=== PATIENT | female | born 1965 | race Caucasian/White ===

== ENCOUNTER 2023-07-03 17:23 | Emergency (ER) | payer OTHER, SELFPAY ==
[2023-07-03 17:28] VITALS: BP 149/92; PULSE 80; RESP 16; TEMP 37; O2SAT 98; BMI 22.0
--- NOTE | 2023-07-03 18:04 | ED_ITS ---
HPI - General Adult General Time Seen by Provider: 18:04 Date Seen: 07/03/23 Chief complaint: Insect Bite Stated complaint: Bee stings, swelling Time Seen by Provider: 07/03/23 17:48 Source: patient Mode of arrival: ambulatory Limitations: no limitations History of Present Illness HPI narrative: Patient is a 57-year-old female presenting to emergency department for a bee sting. Patient states she has an allergy to bees but has never had anaphylaxis from them. States she was stung the hand at 15:00 and the left buttocks at 16:00. She has noticed swelling that has been getting worse. States this is the same thing happened last time she was sent home on steroids and did well. She did take a Benadryl. Denies chest pain, shortness of breath, abdominal pain, diarrhea, headache, lightheadedness, dizziness, fevers, weakness. She states she feels fine right now are than the stings hurt. Related Data Home Medications Medication Instructions Recorded Confirmed escitalopram oxalate 20 mg tablet 20 mg PO DAILY 01/04/23 07/03/23 valacyclovir 500 mg tablet 500 mg PO BID 01/04/23 07/03/23 Allergies Allergy/AdvReac Type Severity Reaction Status Date / Time bee pollen Allergy Severe Anaphylaxis Verified 07/03/23 17:28 Review of Systems Status of ROS: Reports: 10 or more systems reviewed and unremarkable except as noted in History and below [facility] Social History Smoking Status: Never smoker Exam Narrative: Exam Narrative: Const: Well-nourished, Well-developed, in no distress Eyes: PERRL, no conjunctival injection, and symmetrical lids ENMT: Atraumatic external nose and ears. Moist mucous membranes. Neck: Symmetric, trachea midline, No thyromegaly. CVS: RRR, No murmurs or gallops. Peripheral pulses 2+ and equal in all extremities RESP: Unlabored respiratory effort. Clear to auscultation bilaterally. GI: Nontender/Nondistended, No rebound or guarding. MSK:Extremities w/o deformity, Normal Active ROM Skin: Warm, Dry. Swelling noted to right hand at the 1st and 2nd PIP joints Neuro: Normal Muscle tone, No focal neurological deficits. Psych: Awake, Alert, & Oriented x3. Appropriate mood and affect. Const: Vital Signs, click to edit/add: Vital Signs - 24 hr 07/03/23 17:28 Temperature 98.6 F Pulse Rate [Pulse Oximeter] 80 Respiratory Rate 16 Blood Pressure [Ri ght Upper Arm] 149/92 H Pulse Oximetry 98 Oxygen Delivery Me thod Room Air Course Vital Signs Vital signs: Initial Vital Signs Temperature 98.6 F 07/03/23 17:28 Temperature Source Temporal Artery Scan 07/03/23 17:28 Pulse Rate 80 07/03/23 17:28 Respiratory Rate 16 07/03/23 17:28 Blood Pressure 149/92 H 07/03/23 17:28 Blood Pressure Mean 111 H 07/03/23 17:28 Blood Pressure Position Sitting 07/03/23 17:28 Pulse Oximetry 98 07/03/23 17:28 Oxygen Delivery Method Room Air 07/03/23 17:28 Vital Signs Temperature 98.6 F 07/03/23 17:28 Pulse Rate 80 07/03/23 17:28 Respiratory Rate 16 07/03/23 17:28 Blood Pressure 149/92 H 07/03/23 17:28 Pulse Oximetry 98 07/03/23 17:28 Oxygen Delivery Method Room Air 07/03/23 17:28 Temperature 98.6 F 07/03/23 17:28 Pulse Rate 80 07/03/23 17:28 Respiratory Rate 16 07/03/23 17:28 Blood Pressure 149/92 H 07/03/23 17:28 Pulse Oximetry 98 07/03/23 17:28 Oxygen Delivery Method Room Air 07/03/23 17:28 Medical Decision Making MDM Narrative Medical decision making narrative: Patient is a 57-year-old female presented emergency department for to bee stings. The 1st 1 happened 3 hours ago and the 2nd one happened 2 hours ago. She states she has this happen to her before and most knee of steroids and did well. Is not having any signs of anaphylaxis at this time. Is now been several hours since this occurred I believe she is safe to be discharged home. She was sent home on steroids. She is agreeable to this plan. Discharge Plan Discharge Clinical Impression: Allergy to bee sting Patient Disposition: Home, Self-Care Condition: Stable Instructions: Insect Bite or Sting (ED) Additional Instructions: Follow-up with the primary care provider if symptoms do not improve he can also return to the emergency department if your concern. Take the prednisone as directed. Continue take Benadryl. Prescriptions: No Action escitalopram oxalate 20 mg tablet 20 mg PO DAILY valacyclovir 500 mg tablet 500 mg PO BID Follow Up/Referrals: Diego Rinaldi MD [Primary Care Provider] - Stand Alone Forms: [employer] Info Instructions
[2023-07-03] MEDS: predniSONE 20 MG TABLET 40 MG PO (18:18)
--- NOTE | 2023-07-04 12:12 | ED.NURSE ---
Patient calls re: was prescribed prednisone via written prescription yesterday, was not signed by provider so pharmacy will not fill prescription. Per patient, prescription for prednisone 20mg daily x5 days. Discussed with chuy Perez to phone into patient's preferred pharmacy. Called into [facility] on [address] in [place] per patient request. No further questions/concerns.
== END 2023-07-03 18:23 | disposition home or self-care (01) ==
PROVIDERS: Emergency Provider Student in an Organized Health Care Education/Training Program; PCP Family Medicine
DX: T63.441A Toxic effect of venom of bees, accidental (unintentional), initial encounter (principal)
CPT/HCPCS: 99282; 99283; J7512

== ENCOUNTER 2025-06-04 14:12 | Emergency (ER) | payer BC, OTHER, SELFPAY ==
--- OUTSIDE RECORDS SUMMARY | 2025-06-04 14:14 | XMS_ITS | Continuity of Care Document ---
Author Name [facility] Organization [facility] Care Team Providers Care Rig Supervisor Name Role Phone [facility] Unavailable Unavailable Social History Combined list of available smoking, tobacco, and other social history from Department of Defense and Veterans Affairs facilities. Social History Type Response Date Comment Sourc e This section is an empty social history section. DoD
--- OUTSIDE RECORDS SUMMARY | 2025-06-04 14:14 | XMS_ITS | Continuity of Care Document ---
Author Name [facility] Organization [facility] Care Team Providers Care Foundation Relations Manager Name Role Phone [facility] Unavailable Unavailable Social History Combined list of available smoking, tobacco, and other social history from Department of Defense and Veterans Affairs facilities. Social History Type Response Date Comment Sourc e This section is an empty social history section. DoD
--- OUTSIDE RECORDS SUMMARY | 2025-06-04 14:15 | XMS_ITS | Clinical Summary ---
Author Organization [facility] Address [address] [place] [id number] Care Team Providers Care Glove Stitcher Name Role Phone Diego Rinaldi MD Primary Care Provider [phone] Allergies Active Allergy Reactions Criticality Noted Date Comments Bee Venom Protein (Honey Bee) Edema 2020 Medications cholecalciferol (VITAMIN D-3) 2,000 unit capsule Take 1 capsule by mouth once daily. 0 11/05/19 21 Active EPINEPHrine (EpiPen) 0.3 mg/0.3 mL auto-injectorIndic ations:Bee sting allergy Inject 0.3 mg intramuscular one time if needed for Allergic Reaction. 2 Each 1 11/12/19 24 Active meclizine (ANTIVERT) 25 mg tabletIndications: Concussion with loss of consciousness of 30 minutes or less, initial encounter Take 1 Tablet (25 mg) by mouth 3 times daily if needed for Vertigo. 30 Tablet 2 11/12/19 24 Active cetirizine (ZYRTEC) 10 mg tabletIndications: Bee sting allergy Take 1 Tablet (10 mg) by mouth once daily if needed for Allergy Symptoms (Redness, swelling). 90 Tablet 3 11/12/19 24 Active multivit-min/iron/ folic acid/K (MULTI-DAY PLUS MINERALS ORAL) Take by mouth once daily. Active valACYclovir (VALTREX) 500 mg tabletIndications: Recurrent cold sores TAKE 2 TABS BY MOUTH DAILY 180 Tablet 2 01/02/20 25 Active lisinopriL 10 mg tabletIndications: HTN (hypertension) Take 1 Tablet (10 mg) by mouth once daily. 30 Tablet 11 02/13/20 25 Active lovastatin 10 mg tabletIndications: Hyperlipidemia, unspecified hyperlipidemia type Take 1 Tablet (10 mg) by mouth at bedtime. 30 Tablet 11 02/15/20 25 Active methylPREDNISolone (Medrol (Red)) 4 mg tabletIndications: Chronic left shoulder pain,Adhesive capsulitis of left shoulder Take by mouth as instructed per packaging. 21 Tablet 03/13/20 25 Active escitalopram oxalate 20 mg tabletIndications: Anxiety and depression TAKE 1 TABLET BY MOUTH EVERY DAY IN THE MORNING 90 Tablet 1 03/25/20 25 Active Active Problems Problem Noted Date Diagnosed Date Dorsey cyst, left 02/12/2025 HTN (hypertension) 02/12/2025 Chronic left shoulder pain 02/12/2025 Recurrent cold sores 01/01/2025 Hypercholesterolemia 11/12/2023 Multiple thyroid nodules 08/27/2023 TREVOR (generalized anxiety disorder) 11/03/2020 ALEX (obstructive sleep apnea) 11/03/2020 Anxiety disorder 07/10/2014 Vitamin D deficiency 10/09/2012 Hiatal hernia 04/30/2011 Cyst, breast 05/10/2009 Overview (05/10/2009): 3 cysts in right breast , largest 5.4x4.1x1.3 on ultrasound in 2007 Menopause present 05/10/2009 Actinic keratosis Dysplastic nevus Resolved Problems Problem Noted Date Diagnosed Date Resolved Date Routine adult health maintenance 12/14/2016 08/30/2019 Overview (12/14/2016): Colonoscopy 11/2016 diverticulosis repeat in 10 years Acute dyspnea 08/10/2016 08/30/2019 Influenza A 11/06/2013 08/30/2019 S/P hysterectomy with oophorectomy 10/04/2012 08/30/2019 Anxiety state, unspecified 10/05/2008 1 HTN (hypertension) 10/05/2008 6 Overview (01/07/2010): Updated by system to replace inactive record Endometriosis, site unspecified 12/08/2006 08/30/2019 Encounters Date Type Department Care Team Description 04/24/2025 2:30 PM CDT Office Visit [facility] [id number] [facility] [address] [place] [address] Sergio Fu MD Shoulder Pain/problem (Adhesive capsulitis of left shoulder) 04/24/2025 Travel 04/02/2025 2:40 PM CDT - 04/02/2025 11:59 PM CDT Hospital Encounter [facility] Physical [address] [address] [facility] [address] [place] [address] Parish An MD Ebeling, Ashley, PT 04/02/2025 Travel 03/24/2025 Refill [facility] [address] [place] [address] Diego Rinaldi MD Refill Request (Escitalopram Oxalate) 03/21/2025 3:00 PM CDT Procedure Only [facility] [address] [facility] [address] [place] [address] Jeffrey Booth MD Injection (Medication) (Glenohumeral high ... 03/21/2025 Travel 03/14/2025 Telephone [facility] [address] [facility] [address] [place] [address] Jeffrey Booth MD Appointment 03/13/2025 3:00 PM CDT Office Visit [facility] [address] [address] Sergio Fu MD Shoulder Pain/problem (left) 03/13/2025 Travel 03/07/2025 2:07 PM CDT - 03/07/2025 11:59 PM CDT Hospital Encounter [facility] [address] [address] [facility] [address] [place] [address] Parish An MD Ebeling, Ashley, PT 03/07/2025 Travel from Last 3 Months Immunizations Immunization Administration Dates Next Due AMB Influenza, IIV3 (Age >=3 years)(Flu Clinic Only) 08/18/2013,07/13/2012,08/21/2011,08/19 INFLUENZA, IIV3 PF (AGE >= 6 MO) 08/03/2024 Influenza Virus, Unspecified 07/25/2023 Influenza, IIV3 (Age >=3 years) 07/17/2009,08/16,09/12/2007 Influenza, IIV4 08/06/2023,,07/14/2021,07/21,08/08/2019,08/08/2018,07/13/2018 ,07/23/2016,07/16/2015,08/27/2014 Influenza,CCIIV4 PRESERV FREE 07/21/2020, 017 Pneumococcal Conj 20-valent (Prevnar 20) 02/12/2025 RSV, Recombinant ADJ Reconst ituted (Arexvy 120MCG/0.5mL) 02/12/2025 Td, Preservative Free (age >= 7 Years) 7 Tdap 11/12/2023,10/04/2012 Zoster (Shingrix-RZV, recombinant) 09/09/2018, Family History Medical History Relation Name Comments Hypertension Mother Stroke Mother 62 Diabetes Paternal Grandfather Diabetes Paternal Grandmother Cancer-breast No Family History Cancer-ovarian No Family History Relation Name Status Comments Father Alive Mother Alive Paternal Grandfather Paternal Grandmother Sister Alive Social History Tobacco Use Types Packs/Day Years Used Date Smoking Tobacco: Never Passive Smoke Exposure: Never Smokeless Tobacco: Never Tobacco Cessation:Counseling Given: Not Answered Alcohol Use Standard Drinks/Week Comments Yes 0 (1 standard drink = 0.6 oz pur e alcohol) Social PHQ-2 Answer Date Recorded PHQ-2 TOTAL SCORE 0 02/12/2025 Social Connections Answer Date Recorded Do you often feel lonely or isolated from those around you? 0 05/31/2024 Financial Resource Strain Answer Date R ecorded Difficulty of Paying Living Expenses 3 05/31/2024 Difficulty of Paying Living Expenses Not on file 05/31/2024 Food Insecurity Answer Date Recorded Do you worry your food will run out before you are able to buy more? 1 05/31/2024 Transportation Needs Answer Date Record ed Does lack of transportation keep you from medica l appointments? 1 05/31/2024 Does lack of transportation keep you from work, meetings or getting things that you need? 1 05/31/2024 Housing Stability Answer Date Recorded What is your housing situation today? 1 05/31/2024 Utilities Answer Date Recorded Do you have trouble paying f or utilities (for example, heat, electricity, water, phone)? 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 Not on file Not on file Obstetrics History Last Filed Vital Signs Vital Sign Reading Time Taken Comments Blood Pressure 130/80 02/12/2025 8:31 AM CDT Pulse 72 02/12/2025 8:31 AM CDT Temperature 36.9 C (98.5 F) 12/26/2024 8:18 AM NUTRITIONALIST Respiratory Rate 15 12/26/2024 8:18 AM NUTRITIONALIST Oxygen Saturation 97% 12/26/2024 8:18 AM NUTRITIONALIST Inhaled Oxygen Concentration - - Weight 66.3 kg (146 lb 3.2 oz) 02/12/2025 8:31 A M CDT Height 172.2 cm (5' 7.8) 02/12/2025 8:31 AM CDT Body Mass Index 22.36 02/12/2025 8:31 AM CDT Plan of Treatment Health Maintenance Due Date Last Done Comments COVID-19 vaccine series ( season) 2024 10/06/2021, 03/20/2021, 02/20/2021 Influenza Vaccine (#1) 2025 , 08/06/2023, 07/25/2023, Additional history exists Mammogram for age 45-75 07/10/2025 07/10/20 24, 07/16/2023, 07/10/2022, Additional history exists BMI (ht and wt on same day) for age 18+ 02/12/2026 02/12/2025, 09/26/2024, 05/31/2024, Additional history exists Depression screening for age 12+ 02/13/2026 02/13/2025, 02/12/2025, 12/23/2024, Additional history exists Colonoscopy through age 75 12/14/202612/14, 12/14/2016, 12/14/2016 (Completed outside of [facility]), Additional history exists Lipids for age 45-75 02/12/2030 02/12/2025, 11/05/2020, 05/19/2018, Additional history exists Tetanus booster 11/12/2033 11/12/2023, 09/24, 12/08/2006 Zoster (shingles) series for age 50+ Completed 09/09/2018, 05/19/2018 Hepatitis C screening for age 18-79 Completed 11/05/2020 HIV for age 15-65 Completed 02/12/2025 Pneumococcal series for age 50+ Completed 02/12/2025 RSV vaccine for adults or Completed 02/12/2025 Hepatitis B series for 19+ Aged Out N o longer eligible based on patient's age to complete this topic Goals Goal Patient Goal Type Associated Problems Recent Progress Patient-Stated? Author BLOOD PRESSURE - MAINTAINS BP less than 140/90 Blood Pressure No Irasema Gordon MD Procedures Procedure Name Priority Date/Time Associated Diagnosis Comments ANTI HIV 1/2 Routine 02/12/2025 9:27 AM CDT Screening for HIV (human immunodeficiency virus) LIPID PANEL W REFLEX MEASURED LDL Routine 02/12/2025 9:27 AM CDT Lipid screening XR MAMMO MARELY BILAT SCREEN Routine 07/10/2024 4:48 PM CDT Visit for screening mammogram ANTI HCV Routine 11/05/2020 8:45 AM NUTRITIONALIST Need for hepatitis C screening test SCAN-COLONOSCOPY 12/14/2016 12:0 0 AM NUTRITIONALIST from Last 3 Months or Most Recently Relevant to Health Maintenance Results * (ABNORMAL) LIPID PANEL W REFLEX MEASURED LDL (02/12/2025 9:27 AM CDT) CHOLESTEROL, TOTAL 262(H) <200 mg/dL [facility] HDL CHOLESTEROL 85 > OR = 50 mg/dL [facility] TRIGLYCERIDES 117 <150 mg/dL [facility] LDL-CHOLESTEROL 154(H) mg/dL (calc) [facility] Comment: Reference range: <100 Desirable range <100 mg/dL for primary prevention; <70 mg/dL for patients with CHD or diabetic patients with > or = 2 CHD risk factors. LDL-C is now calculated using the Han calculation, which is a validated novel method providing better accuracy than the Friedewald equation in the estimation of LDL-C. Colin GROVER et al. MIKE. 2013;310(19): 8330-5094 (http://education.[employer]Medix/faq/PAO850) CHOL/HDLC RATIO 3.1 <5.0 (calc) [facility] NON HDL CHOLESTEROL 177(H) <130 mg/dL (calc) [facility] Comment: For patients with diabetes plus 1 major ASCVD risk factor, treating to a non-HDL-C goal of <100 mg/dL (LDL-C of <70 mg/dL) is considered a therapeutic option. Blood BLOOD SPECIMEN / Unknown 02/12/2025 9:27 AM CDT 02/12/2025 9:27 AM CDT Diego Rinaldi MD CHEMISTRY Final Resul t [employer] [facility] [address] [place] [address], [facility] [address] [place] [address] * ANTI HIV 1/2 (02/12/2025 9:27 AM CDT) HIV AG/AB, 4TH GEN NON-REACT THERON NON-REACT THERON [email or web address] [place] Comment: HIV-1 antigen and HIV-1/HIV-2 antibodies were not detected. There is no laboratory evidence of HIV infection. PLEASE NOTE: This information has been disclosed to you from records whose confidentiality may be protected by state law. If your state requires such protection, then the state law prohibits you from making any further disclosure of the information without the specific written consent of the person to whom it pertains, or as otherwise permitted by law. A general authorization for the release of medical or other information is NOT sufficient for this purpose. For additional information please refer to http://education.[employer]/faq/IHK083 (This link is being provided for informational/ educational purposes only.) The performance of this assay has not been clinically validated in patients less than 2 years old. Blood BLOOD SPECIMEN / Unknown 02/12/2025 9:27 AM CDT 02/12/2025 9:27 AM CDT us Diego Rinaldi MD SEND OUTS Final Resul t [employer] [facility] [address] [place] [address], [employer] [facility] [address] [place] [address] * XR MAMMO MARELY BILAT SCREEN (07/10/2024 4:48 PM CDT) Anatomical Region Laterality Modality BREASTS, Breast Left, Breast Right Bilateral Mammography Impressions 07/11/2024 2:05 PM CDT There is no radiographic evidence for malignancy. Recommend annual mammograms. MAMMOGRAM ASSESSMENT: ACR 1 Negative PATIENTS: You will also receive a letter with your examination results in an easy to read format. If you have questions about your results, please contact your referring provider. Narrative 07/11/2024 2:05 PM CDT For Patients: As a result of the Century Cures Act, medical imaging exams and procedure reports are released immediately into your electronic medical record. You may view this report before your referring provider. If you have questions, please contact your health care provider. XR MAMMO MARELY BILAT SCREEN [[id number]] CLINICAL HISTORY: This is an asymptomatic 58 y.o. patient. INDICATION FOR EXAM: Mammogram Screening. TECHNIQUE: CC & MLO views were obtained. This study was evaluated with the assistance of Computer-Aided Detection. Breast Tomosynthesis was used in interpretation. COMPARISON FILM: Yes 07/16/23 [facility] 07/10/22 [facility] FINDINGS: The breasts are extremely dense, which lowers the sensitivity of mammography. There are no dominant masses, suspicious micro calcifications or areas of architectural distortion. us Diego Rinaldi MD MAMMO Final Resul t * ANTI HCV (11/05/2020 8:45 AM NUTRITIONALIST) HEPATITIS C ANTIBODY Non-React theron Non-React theron 11/05/2020 4:43 PM NUTRITIONALIST [facility] Comment:Antibodies to HCV no t detected; does not exclude the possibility of exposure to HCV. Blood BLOOD SPECIMEN / Unknown Venipuncture / Unknown 11/05/2020 8:45 AM NUTRITIONALIST 11/05/2020 8:45 AM NUTRITIONALIST us Irasema Gordon MD SEND OUTS Final Resul t [facility] 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
--- OUTSIDE RECORDS SUMMARY | 2025-06-04 14:15 | XMS_ITS | Clinical Summary ---
Author Organization [facility] Address [address] [address] Care Team Providers Care Nurse General Duty Name Role Phone Janki Cronin MD Primary Care Provider Unavail able Source Comments You are receiving this document as you are listed as the primary care provider,follow-up provider, or the patient has been referred to you for consultation.This is in compliance with the Medicare and[place] [employer] EHR Incentive Program,which states Providers who transition their patient to another setting of careor provider of care or refers their patient to another provider of care shouldprovide summary care record for each transition of care or referral. [email or web address] Allergies No known active allergies Medications cholecalciferol (VITAMIN D3) 1000 UNITS tablet Take 1 Tablet (1,000 Units) by mouth daily. 07/17/20 15 Active ALBUTEROL SULFATE HFA INIndications:TAYLOR CRISOSTOMO V WedApr 13, 2016 8:19 AM Received from: External Pharmacy INHALE 1-2 PUFFS BY MOUTH EVERY 4 HOURS IF NEEDED. 1 12/26/19 16 Active escitalopram oxalate (LEXAPRO) 10 MG tabletIndications: TAYLOR CRISOSTOMO V WedApr 13, 2016 8:19 AM Received from: External Pharmacy Take 1 Tablet (10 mg) by mouth every morning. Indications: TAYLOR CRISOSTOMO V WedApr 13, 2016 8:19 AM Received from: External Pharmacy 0 02/07/20 16 Active fluticasone (FLONASE) 50 MCG/ACT nasal solution INHALE 1 SPRAY INTO BOTH NOSTRILS ONCE DAILY. 12/26/19 17 Active valACYclovir (VALTREX) 500 MG tablet Take 500 mg by mouth. 05/24/20 16 Active ondansetron (ZOFRAN-ODT) 4 MG disintegrating tablet Take 1 Tablet by mouth every 8 hours as needed for Nausea. 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 04/05/2024 Snoring 03/06/2024 Hypercholesterolemia 11/12/2023 Multiple thyroid nodules 08/27/2023 Occipital neuralgia 02/27/2022 TREVOR (generalized anxiety disorder) 11/03/2020 ALEX (obstructive sleep apnea) 11/03/2020 Anxiety disorder 07/10/2014 Vitamin D deficiency 10/09/2012 S/P hysterectomy with oophorectomy 10/04/2012 Hiatal hernia 04/30/2011 Cyst, breast 05/10/2009 Overview (06/15/2024): 3 cysts in right breast , largest 5.4x4.1x1.3 on ultrasound in 2008 Endometriosis 12/08/2006 Social History Tobacco Use Types Packs/Day Years Used Date Smoking Tobacco: Never Smokeless Tobacco: Never Comments No Sex and Gender Information Value Date Recorded Sex Assigned at Not on file Legal Sex Female 5:33 AM CDT Gender Identity Not on file Sexual Orientation Not on file Last Filed Vital Signs Vital Sign Reading Time Taken Comments Blood Pressure 130/82 06/15/2024 10:08 AM CDT Pulse 91 06/15/2024 10:08 AM CDT Temperature 37.2 C (98.9 F) 06/15/2024 10:08 AM CDT Respiratory Rate 20 06/15/2024 10:08 AM CDT Oxygen Saturation 95% 06/15/2024 10:08 AM CDT Inhaled Oxygen Concentration - - Weight 65.8 kg (145 lb) 05/18/2017 11:05 AM CDT Height 172.7 cm (5' 8) 05/18/2017 11:05 AM CDT Body Mass Index 22.05 05/18/2017 11:05 AM CDT Plan of Treatment Health Maintenance Due Date Last Done Comments Cervical Cancer Screening Due 1965 Colon Cancer Screening Plan Due 1965 Hep C Screening (Preventive Services) 1963 HIV Screening (Preventive Services) 1979 Adult Preventive Visit 1981 Cholesterol 2008 Pneumococcal Vaccine 50+ Yrs (1 of 1 - PCV) 2013 COVID-19 Vaccine (4 - season) 2024 10/06/2021, 03/20/2021, 02/20/2021 Mammogram 07/16/2024 07/16/2023, 06/25, 07/08/2021, Additional history exists Influenza Vaccine (#1) 2025 , 07/25/2023, 08/28/2022, Additional history exists DTaP/Tdap/Td Vaccine (3 - Tdap) 11/12/2033 11/12/2023, 10/04/2012, 12/08/2006 RSV Vaccine (1 - 1-dose 75+ series) 2038 Zoster/Shingles Vaccine Completed 09/09/2018, 05/19 HepA Vaccine Aged Out No longer eligi ble based on patient's age to complete this topic HepB Vaccine Aged Out No longer eligi ble based on patient's age to complete this topic Hib Vaccine Aged Out No longer eligi ble based on patient's age to complete this topic IPV (Polio) Vaccine Aged Out No longe r eligible based on patient's age to complete this topic MCV4 Vaccine Aged Out No longer eligi ble based on patient's age to complete this topic Meningococcal B Vaccine Aged Out No l onger eligible based on patient's age to complete this topic Insurance [facility] BCBS OUT OF STATE [facility] Care Teams Nurse General Duty Relationship Specialty Start Date End Date Janki Cronin MD PCP - General 07/21/11
--- OUTSIDE RECORDS SUMMARY | 2025-06-04 14:15 | XMS_ITS | Clinical Summary ---
Author Organization [facility] Address [address] [place] [address]. [place] [address] Care Team Providers Care Catering Truck Driver Name Role Phone No Ref-Primary, Physician Primary Care Provider Allergies No known active allergies Medications guaiFENesin-cod eine (ROBITUSSIN AC) 100-10 MG/5ML SOLN solutionIndicat ions:Cough Take 5 mLs by mouth every 4 hours as needed for cough 120 mL 0 7 Active Additional Information Patient not taking.Reported on 07/18/2018 azithromycin (ZITHROMAX) 250 MG tabletIndicatio ns:Cough Two tablets first day, then one tablet daily for four days. 6 tablet 0 7 Active Additional Information Patient not taking.Reported on 07/18/2018 escitalopram (LEXAPRO) 10 MG tablet Take 10 mg by mouth 6 Active cephALEXin (KEFLEX) 500 MG capsuleIndicati ons:Insect bite of right upper extremity with infection, initial encounter Take 1 capsule (500 mg) by mouth 3 times daily 30 capsule 8 Active Additional Information Patient not taking.Reported on 10/15/2018 triamcinolone (KENALOG) 0.1 % creamIndication s:Insect bite of right upper extremity with infection, initial encounter Apply topically 2 times daily 80 g 3 8 Active Additional Information Patient not taking.Reported on 10/15/2018 azithromycin (ZITHROMAX) 250 MG tabletIndicatio ns:Bronchopneum onia 2 tablets day 1 then 1 tablet daily for 4 days 6 tablet 8 Active albuterol (PROAIR HFA/PROVENTIL HFA/VENTOLIN HFA) 108 (90 Base) MCG/ACT inhalerIndicati ons:Bronchopneu monia Inhale 1-2 puffs into the lungs every 4 hours as needed for shortness of breath / dyspnea or wheezing 1 Inhaler 8 Active Active Problems Problem Noted Date Diagnosed Date Routine adult health maintenance 12/14/2016 Overview (07/18/2018): Overview: Colonoscopy 11/2016 diverticulosis repeat in 10 years Anxiety disorder 07/10/2014 S/P hysterectomy with oophorectomy 10/04/2012 Hiatal hernia 04/30/2011 Menopause present 05/10/2009 Endometriosis 12/08/2006 Social History Tobacco Use Types Packs/Day Years Used Date Smoking Tobacco: Never Smokeless Tobacco: Never Alcohol Use Standard Drinks/Week Comments Not Asked 0 (1 standard drink = 0.6 oz pur e alcohol) Comments Unknown Sex and Gender Information Value Date Recorded Sex Assigned at Not on file Legal Sex Female 4:47 AM AGED OR DISABLED CARE WORKER Gender Identity Not on file Sexual Orientation Not on file Last Filed Vital Signs Vital Sign Reading Time Taken Comments Blood Pressure 122/89 10/15/2018 9:37 AM AGED OR DISABLED CARE WORKER Pulse 93 10/15/2018 9:37 AM AGED OR DISABLED CARE WORKER Temperature 37.1 C (98.8 F) 10/15/2018 9:37 AM AGED OR DISABLED CARE WORKER Respiratory Rate 18 10/31/2016 8:23 AM AGED OR DISABLED CARE WORKER Oxygen Saturation 96% 10/15/2018 9:37 AM AGED OR DISABLED CARE WORKER Inhaled Oxygen Concentration - - Weight 68 kg (150 lb) 10/31/2016 8:23 AM AGED OR DISABLED CARE WORKER Height 172.7 cm (5' 8) 10/31/2016 8:23 AM AGED OR DISABLED CARE WORKER Body Mass Index 22.81 10/31/2016 8:23 AM AGED OR DISABLED CARE WORKER Plan of Treatment Not on file Insurance [facility] WITH BS Care Teams Catering Truck Driver Relationship Specialty Start Date End Date No Ref-Primary, Physician PCP - General 07/18/18
--- OUTSIDE RECORDS SUMMARY | 2025-06-04 14:15 | XMS_ITS | Clinical Summary ---
Author Organization [facility] Address [address] , [address] [place] [address] Phone Care Team Providers Care Foot Tender Name Role Phone [facility] Unavailable Unava ilable Conditions or Problems Problem Name Problem Code Onset Date Status Entry Date Provider Comment Standard Description Annotate Neck pain 61856812 (SNOMED CT) Active Erickson Dalal MD Neck pain Occipital neuralgia 22695357 (SNOMED CT) Active Erickson Dalal MD Cervico-occip ital neuralgia Medications Medication Instructions Start Date Stop Date Generic Name NDC Provider ESCITALOPRAM OXALATE 20 MG TABS escitalopram oxalate 82129340174 Erickson Dalal MD Medications Administered No information available. 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 Plan of Care Type Date Detail Pending order Occipital Nerve Block and Trigger Point Injections Pending order Occipital Nerve Block and Trigger Point Injections Pending order MRI-Brain W/O Pending order Obtain imaging r eport and CD Pending order Patient to call for test results Pending order MRI-Brain W/O Pending order Obtain imaging r eport and CD Pending order Patient to call for test results Procedures Code Procedure Name Date Entry Date [id number] Documentation of current medicatio ns Vital Signs Date Name Value Unit Description BMI (Body Mass Index) 22.29 kg/m2 Bod y Mass Index (Ratio) Height 67.99 [in_us] height E&M Weight Measured 66.36 kg weight in kilograms E&M Weight Measured 146 [lb_av] weight E& M Weight Measured 146 [lb_av] weight E& M Body Temperature 37.28 [degF] temperat ure E&M BP Diastolic 60 mm[Hg] blood pressu re, diastolic BP Systolic 102 mm[Hg] blood pressur e, systolic Heart Rate 68 /min pulse rate Respiratory Rate 14 /min respirat ory rate E&M Immunizations No information available. Advance Directives No information available.
[2025-06-04 14:25] VITALS: BP 147/86; PULSE 67; RESP 12; TEMP 35.9; O2SAT 98; BMI 21.9
--- NOTE | 2025-06-04 14:42 | ED_ITS ---
HPI - General Adult General Date Seen: 06/04/25 Chief complaint: Allergic Reaction Stated complaint: stung by bee on right foot/allergic to bees Time Seen by Provider: 06/04/25 14:37 History of Present Illness HPI narrative: 59-year-old female with a known allergy to bee venom presents to the ER today after she was stung on her right foot. The bee sting occurred about 10 30 this morning. She has some swelling around her foot and ankle. Also developed a scratchy throat and a sensation that her lips were swollen around noon.. At around noon, after her lip started to feel swollen, she took Benadryl 50 mg p.o. she did not notice any objective visible swelling. She has not had any change in her voice. No trouble breathing. No abdominal pain or nausea. She is not lightheaded or dizzy. She was not sure if she should give herself her EpiPen are not so came here to the ER. she has a history of similar allergic reactions often times with were swelling this and has been given EpiPen in the past. Related Data Home Medications ?Medication ?Instructions ?Recorded ?Confirmed escitalopram oxalate 20 mg tablet 20 mg PO DAILY 01/0406/04/25 valacyclovir 500 mg tablet 500 mg PO BID 01/04/2305/25 amlodipine 2.5 mg tablet 2.5 mg PO DAILY 06/04/2509/18 lovastatin 10 mg tablet 10 mg PO QPM 06/04/25 Previous Rx's ?Medication ?Instructions ?Recorded cetirizine 10 mg capsule (Zyrtec) 10 mg PO DAILY PRN a llergy 06/04/25 symptoms #7 caps epinephrine 0.3 mg/0.3 mL 0.3 mg (0.3 mL) IM Q5-15M CA N #2 ea 06/04/25 injection, auto-injector (EpiPen) prednisone 20 mg tablet 60 mg (3 x 20 mg) PO DAILY 2 days 06/04/25 #6 tabs Allergies Allergy/AdvReac Type Severity Reaction Status Date / Time bee pollen Allergy Severe Anaphylaxis Verified 07/03/23 17:28 PFSH PFSH Social History Smoking Status: Never smoker Exam Narrative: Exam Narrative: Constitutional: Appears well-developed and well-nourished. Alert. Conversant. Non toxic. HENT: Head: Atraumatic. Nose: Nose normal. Mouth/Throat: Oral mucosa is clear and moist. no trismus. Pharynx normal. P honation normal. No trismus. No stridor. Tonsils symmetric. No tonsillar enlargement, erythema, or exudate. Eyes: Conjunctivae normal. EOM normal. Pupils equal, round, and reactive to light. No scleral icterus. Neck: Normal range of motion. Neck supple. No tracheal deviation present. Cardiovascular: Normal rate, regular rhythm. No gallop. No friction rub. No murmur heard. Symmetric radial artery pulses Pulmonary/Chest: Effort normal. No stridor. No respiratory distress. No wheezes. No rales. No rhonchi . No tenderness. Abdominal: Soft. No distension. No mass. No tenderness. No rebound. No guarding. Musculoskeletal: RUE: Normal range of motion. No tenderness. No deformity LUE: Normal range of motion. No tenderness. No deformity RLE: Normal range of motion. No edema. No tenderness. No deformity LLE: Normal range of motion. No edema. No tenderness. No deformity Lymph: No cervical adenopathy. Neurological: Alert and oriented to person, place, and time. Normal strength. CN II-VII intact. No sensory deficit. GCS eye subscore is 4. GCS verbal subscore is 5. GCS motor subscore is 6. Normal coordination Skin: She has a insect bite on the right dorsal lateral proximal foot with torsten rounding erythema and swelling several cm in size. No ascending lymphangitis. Otherwise, Skin is warm and dry. No rash noted. No other hives. No pallor. Normal capillary refill. Psychiatric: Normal mood. Normal affect. Polite Const: Vital Signs, click to edit/add: Vital Signs - 24 hr 06/04/25 14:25 Temperature 96.6 F L Pulse Rate [Pulse Oximeter] 67 Respiratory Rate 12 Blood Pressure [Ri ght Upper Arm] 147/86 H Pulse Oximetry 98 Oxygen Delivery Me thod Room Air Course Course ED Course: Recheck-feeling a little bit jittery after epi. Still no objective signs of swelling in her mouth or throat. Recheck-16 30. Doing well. Mouth and lip tingling is now resolved. No other signs of evolving or worsening allergic reaction. She is well educated about allergic reactions in comfortable managing her symptoms and monitoring for rebound at home. Vital Signs Vital signs: Initial Vital Signs Temperature 96.6 F L 06/04/25 14:25 Temperature Source Temporal Artery Scan 06/04/25 14:25 Pulse Rate 67 06/04/25 14:25 Respiratory Rate 12 06/04/25 14:25 Blood Pressure 147/86 H 06/04/25 14:25 Blood Pressure Mean 106 H 06/04/25 14:25 Blood Pressure Position Sitting 06/04/25 14:25 Pulse Oximetry 98 06/04/25 14:25 Oxygen Delivery Method Room Air 06/04/25 14:25 Vital Signs Temperature 96.6 F L 06/04/25 14:25 Pulse Rate 67 06/04/25 14:25 Respiratory Rate 12 06/04/25 14:25 Blood Pressure 147/86 H 06/04/25 14:25 Pulse Oximetry 98 06/04/25 14:25 Oxygen Delivery Method Room Air 06/04/25 14:25 Temperature 96.6 F L 06/04/25 14:25 Pulse Rate 67 06/04/25 14:25 Respiratory Rate 12 06/04/25 14:25 Blood Pressure 147/86 H 06/04/25 14:25 Pulse Oximetry 98 06/04/25 14:25 Oxygen Delivery Method Room Air 06/04/25 14:25 Medications Administered Medications: Discontinued Medications Generic Name Dose Route Start Last Admin Trade Name Freq PRN Reason Stop Dose Admin Epinephrine HCl 0.3 mg 06/04/25 14:51 06/04/25 15:07 Epinephrine 0.3 Mg Pen IM 06/04/25 14:52 0.3 mg ONCE ONE Administration Ibuprofen 600 mg 06/04/25 15:00 06/04/25 15:08 Ibuprofen 200 Mg Tablet PO 06/04/25 15:01 600 mg ONCE ONE Administration Prednisone 60 mg 06/04/25 14:51 06/04/25 15:08 Prednisone 20 Mg Tablet PO 06/04/25 14:52 60 mg ONCE ONE Administration Medical Decision Making MDM Narrative Medical decision making narrative: This patient presents for evaluation of reaction after a bee sting to her right foot. She does have signs of right foot swelling from the bee sting and also some tingling of her lips and throat.. Symptoms are consistent with allergic reaction. No bronchospasm, GI symptoms, hypotension, or other sign of anaphylaxis. She does not have any objective signs of facial swelling, lip swelling, oral swelling, trismus or imminent airway compromise. Patient was treated here with medications as noted above. Symptoms improved after meds. Will send home with epipen, steroids, antihistamines. Potential for rebound reaction was discussed. Return of anaphylactic symptoms were discussed with patient and they were instructed to inject epi-pen and call 911 should these symptoms occur. Given the rapidity of resolution, lack of serious systemic symptoms, lack of respiratory difficulty and no oral or pharyngeal swelling, would not admit at this time for anaphylaxis. There is no signs of anaphylactic shock. Discharge Plan Discharge Clinical Impression: Allergic reaction Patient Disposition: Home, Self-Care Condition: Stable Instructions: Insect Bite or Sting (ED), General Allergic Reaction (ED) Additional Instructions: As we discussed, please return to the ER right away if you have worsening feeling of swelling in her lips or throat, trouble breathing, lightheadedness or dizziness or fainting, spreading hives or rash, or if you have any other concerns. To treat your allergic reaction for the next couple of days you can use antihistamine such as Benadryl every 6 hours or Zyrtec 2 times daily. Use the prednisone once per day for the next 2 days. Use your EpiPen if you are having severe allergic reaction symptoms. Prescriptions: New prednisone 20 mg tablet 60 mg PO DAILY 2 Days Qty: 6 0RF epinephrine [EpiPen] 0.3 mg/0.3 mL auto-injector 0.3 mg IM Q5-15M PRNQty: 2 0RF Rx Instructions: do not exceed 3 doses per episode Zyrtec 10 mg capsule 10 mg PO DAILY PRN (Reason: allergy symptoms) Qty: 7 0RF No Action escitalopram oxalate 20 mg tablet 20 mg PO DAILY valacyclovir 500 mg tablet 500 mg PO BID amlodipine 2.5 mg tablet 2.5 mg PO DAILY lovastatin 10 mg tablet 10 mg PO QPM Follow Up/Referrals: Diego Rinaldi MD [Primary Care Provider, Family Practice] Stand Alone Forms: [employer] Info Instructions
--- OUTSIDE RECORDS SUMMARY | 2025-06-04 15:00 | XMS_ITS | Clinical Summary ---
Author Organization [facility] Address [address] , [address] [place] [address] Phone Care Team Providers Care Follow Up Specialist Name Role Phone [facility] Unavailable Unava ilable Conditions or Problems Problem Name Problem Code Onset Date Status Entry Date Provider Comment Standard Description Annotate Neck pain [id number] (SNOMED CT) Active Erickson Dalal MD Neck pain Occipital neuralgia [id number] (SNOMED CT) Active Erickson Dalal MD Cervico-occip ital neuralgia Medications Medication Instructions Start Date Stop Date Generic Name NDC Provider ESCITALOPRAM OXALATE 20 MG TABS escitalopram oxalate [id number] Erickson Dalal MD Medications Administered No information available. 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
[2025-06-04] MEDS: EPINEPHrine 0.3 MG PEN IM (15:07)
[2025-06-04] MEDS: IBUPROFEN 200 MG TABLET 600 MG PO (15:08)
[2025-06-04 16:30] VITALS: BP 127/72; PULSE 80; RESP 16; O2SAT 98
== END 2025-06-04 16:31 | disposition home or self-care (01) ==
PROVIDERS: Emergency Provider Emergency Medicine; PCP Family Medicine
DX: T63.441A Toxic effect of venom of bees, accidental (unintentional), initial encounter (principal)
CPT/HCPCS: 96372; 99283; A9270; J0169; J7512

== ENCOUNTER 2025-10-16 14:25 | Outpatient (CLI) | payer BC, OTHER, SELFPAY ==
--- NOTE | 2025-10-16 14:40 | CRLHL7_ITS ---
For Patients: As a result of the Century Cures Act, medical imaging exams and procedure reports are released immediately into your electronic medical record. You may view this report before your referring provider. If you have questions, please contact your health care provider. INDICATION: BILATERAL SCREENING MAMMOGRAM, ASYMPTOMATIC 60 Y/O FEMALE COMPARISON: 06/12/2019, 04/12/2018, 04/06/2017 TECHNIQUE: Digital mammogram in CC and MLO projections including computer-aided detection (CAD) and tomosynthesis. BREAST COMPOSITION: The breasts are heterogeneously dense, which may obscure small masses. FINDINGS: No suspicious findings. ASSESSMENT: BI-RADS 1 Negative RECOMMENDATION: Annual screening mammogram. A lay language report of this examination will be provided to the patient. Dictated by: Perlita Oliva MD @ 10/18/2025 07:30:43 (Electronically Signed)
== END 2025-10-16 14:26 | disposition home or self-care (01) ==
LOC: MAMMO 14:26
PROVIDERS: PCP Family Medicine; Visit Provider Family Medicine
DX: Z12.31 Encounter for screening mammogram for malignant neoplasm of breast (principal); R92.333 Mammographic heterogeneous density, bilateral breasts
CPT/HCPCS: 77063; 77067